=== PATIENT | male | born 1965 | race Caucasian/White ===

== ENCOUNTER 2018-01-01 10:32 | Day surgery (SDC) | payer BC ==
[~2018-01-01] VITALS: Ht 177.8 cm; Wt 137.0 kg
[2018-01-01 10:49] LABS: BASOPHIL (%) 0.6 % (0-1); BASOPHIL COUNT 0.1 K/uL (0-0.1); EOSINOPHIL (%) 1.6 % (0-5); EOSINOPHIL COUNT 0.1 K/uL (0-0.3); HEMATOCRIT 41.5 % (38.0-50.0); HEMOGLOBIN 14.1 G/DL (12.5-16.6); IMMATURE GRANULOCYTE (%) 0.3 % (0.0-0.7); LYMPHOCYTE (%) 22.9 % (15-42); LYMPHOCYTE COUNT 1.8 K/uL (1.0-2.8); MCH 31.5 PG (29.0-34.0); MCV 92.8 FL (86-99); MONOCYTE (%) 6.4 % (3-12); MONOCYTE COUNT 0.5 K/uL (0-0.8); NEUTROPHIL (%) 68.2 % (45-76); NEUTROPHIL COUNT 5.4 K/uL (1.8-6.4); PLATELET COUNT 292 K/uL (156-360); RBC DIS.WIDTH-CV 11.9 % (11.8-14.6); RBC DIS.WIDTH-SD 40.9 % (39-53); RED BLOOD COUNT 4.47 M/uL (4.00-5.50); WHITE BLOOD COUNT 7.9 K/uL (4.1-10.2)
[2018-01-01 11:00] LABS: AMYLASE 35 IU/L (1-118); CHLORIDE 104 mEq/L (99-109); POTASSIUM 4.4 mEq/L (3.7-5.4); SODIUM 137 mEq/L (136-147)
[2018-01-01 11:02] LABS: GLUCOSE 133 mg/dL (70-99)
[2018-01-01 11:05] LABS: SERUM ETHYL ALCOHOL < 10 mg/dL
[2018-01-01 11:06] LABS: CREATININE 0.8 mg/dL (0.6-1.3); GFR ESTIMATE (CALCULATED) > 59 mL/min/ (58.99-99999)
[2018-01-01 11:07] LABS: UREA NITROGEN (BUN) 14 mg/dL (9-23)
[2018-01-01 11:09] LABS: LIPASE 11 U/L (1.0-51.0)
[2018-01-01] MEDS ORDERED: DEXILANT60 MG PO (11:42)
[2018-01-01] MEDS ORDERED: PROVENTIL,2.5 MG/3 M IH (14:17)
[2018-01-01] MEDS ORDERED: B-125000 MC2 PO (14:20)
[2018-01-01] MEDS ORDERED: ADVAIR HFA120 INHALA IH (14:21)
[2018-01-01] MEDS ORDERED: XOPENEX1.25 MG/3 IH (14:22)
[2018-01-01] MEDS ORDERED: FOLIC ACID0.4 MG PO (14:22)
[2018-01-01] MEDS ORDERED: GLUCOPHAGE500 MG PO (14:23)
[2018-01-01] MEDS ORDERED: METOPROLOL TART25 MG PO (14:25)
[2018-01-01] MEDS ORDERED: DAILY VALUE1 EACH PO (14:26)
[2018-01-01] MEDS ORDERED: NITROGLYCERIN0.4 MG SL (14:27)
[2018-01-01] MEDS ORDERED: PROTONIX40 MG PO (14:28)
[2018-01-01] MEDS ORDERED: SOTALOL120 MG PO (14:29)
[2018-01-01] MEDS ORDERED: SPIRIVA RESPIMAT4 G1 IH (14:30)
[2018-01-01 20:01] VITALS: BP 156/88
[2018-01-01 20:20] VITALS: BP 156/88
[2018-01-02 01:21] VITALS: BP 124/78
[2018-01-02 04:10] VITALS: BP 117/64
[2018-01-02 07:25] VITALS: BP 105/71
[2018-01-02] MEDS ORDERED: ENDOCET 5-3251 EACH PO (09:42)
[2018-01-02] MEDS ORDERED: KEFLEX500 MG PO (09:42)
[2018-01-02 12:11] VITALS: BP 132/83
[2018-01-02 15:55] VITALS: BP 123/81
== END 2018-01-02 18:01 | disposition home or self-care (01) ==
LOC: TRA 10:32 → SDC 16:16 → ENRESERV 17:04 → 2SOUTH 17:05 → 3EAST 17:05 → ENRESERV 17:19 → 3EAST 19:44
PROVIDERS: Emergency Medicine
PROC: 0JDN0ZZ Extraction of Right Lower Leg Subcutaneous Tissue and Fascia, Open Approach (ICD-10-PCS; principal; 2018-01-01)
DX: S81.011A Laceration without foreign body, right knee, initial encounter (principal); S50.02XA Contusion of left elbow, initial encounter; K21.9 Gastro-esophageal reflux disease without esophagitis; W11.XXXA Fall on and from ladder, initial encounter; Y93.H9 Activity, other involving exterior property and land maintenance, building and construction; Y92.008 Other place in unspecified non-institutional (private) residence as the place of occurrence of the external cause; J44.9 Chronic obstructive pulmonary disease, unspecified
CPT/HCPCS: 71045; 73080; 73590; 80048; 81003; 82150; 83690; 85025; 86850; 86900; 86901; 93005; 99202; 99281; 99285; G0378; G0480; J0330; J0690; J1170; J2405; J3010